=== PATIENT | female | born 1955 | race Caucasian/White ===

== ENCOUNTER 2018-07-04 12:16 | Emergency (ER) | payer OTHER ==
[~2018-07-04] VITALS: Ht 160 cm; Wt 65.1 kg
[2018-07-04 12:30] VITALS: BP 153/76; PULSE 64; RESP 18; Ht 160 cm; Wt 65.1 kg
--- NOTE | 2018-07-04 14:40 | ERD ---
ER Documentation Chief Complaint Chief Complaint 2 weeks of sob ROS All systems reviewed and are negative except as per history of present illness. FmHx Family History: No diabetes, No coronary disease Physical Exam Vitals Vital Signs Date Temp Pulse Resp B/P (MAP) Pulse Ox O2 O2 Flow FiO2 Time Delivery Rate 07/04/18 98.3 64 18 153/76 98 12:30 (101) Physical Exam Const: No acute distress Head: Atraumatic Eyes: Normal Conjunctiva ENT: Normal External Ears, Nose and Mouth. Neck: Full range of motion. No meningismus. Resp: Clear to auscultation bilaterally Cardio: Regular rate and rhythm, no murmurs Abd: Soft, non tender, non distended. Normal bowel sounds Skin: No petechiae or rashes Back: No midline or flank tenderness Ext: No cyanosis, or edema Neur: Awake and alert Psych: Normal Mood and Affect Departure Diagnosis: Primary Impression: Upper respiratory infection Condition: Stable Patient Instructions: Preventing Common Respiratory Infections Additional Instructions: Muchas dio por [facility] para barrera servicio. Esperamos que en barrera visita a la misha de emergencia barrera problema medico haya sido solucionado y que se sienta mucho mejor. Para estar seguros que barrera mejoria sigue en proceso, le pedimos el favor de hacer angelica manas de seguimiento medico con barrera doctor primario en los proximos 2-4 marc. Lleve con usted estos documentos y las medicinas recetadas. Si lucian sintomas empeoran, NO SE ESPERE, por favor regrese a misha de emergencia INMEDIATAMENTE. En jatin que usted no tenga un mdico de atencin primaria: Llame al mdico o clnica comunitaria de referencia que aparece abajo prasanna las horas de consultorio para hacer angelica manas para que le vean. CLINICAS: [facility] [phone] [id number] [facility] 982 [phone] [id number] [facility] 931 [phone] [id number] [facility] [phone] [id number] [facility] 741 [phone] [id number] [facility]. [phone] ELIE SNYDER MD Jul 04, 2018 14:40
[2018-07-04] MEDS ORDERED: LORA10TA3 PO (15:51)
[2018-07-04] MEDS ORDERED: ALBU2SYR3 PO (15:51)
== END 2018-07-04 16:32 | disposition home or self-care (01) ==
LOC: FTE 12:16
DX: J06.9 Acute upper respiratory infection, unspecified (principal)
CPT/HCPCS: 99283